=== PATIENT | male | born 1945 | race African-American/Black ===

== ENCOUNTER 2016-11-14 09:11 | Inpatient (IN) | payer OTHER, MEDICARE ==
[~2016-11-14] VITALS: Ht 182.9 cm; Wt 98.6 kg
[2016-11-14] VITALS (10 sets, daily range): BP systolic 121–164; BP diastolic 90–106; PULSE 62–82; RESP 16–19; TEMP 96.5–98.2; O2SAT 94–100
[~2016-11-14 09:11] MED LIST: FINA1TAB2 PO; LIPI40TA PO; NORV10TA OR; PROS5TAB2 PO
[2016-11-14] MEDS ORDERED: LISI10TA PO (09:35)
[2016-11-14] MEDS ORDERED: EPINEPHrine HCL (1:1000) 1 MG/ML VIAL IM ONE (10:00)
[2016-11-14] MEDS ORDERED: FAMOTIDINE 20 MG/2 ML VIAL IV PUSH ONE (10:00)
[2016-11-14] MEDS ORDERED: SODIUM CHLORIDE 0.9% FLUSH 5 ML FLUSH IVF PRN (10:00)
[2016-11-14] MEDS ORDERED: diphenhydrAMINE HCL 50 MG/ML VIAL IVP ONE (10:00)
[2016-11-14] MEDS ORDERED: methylPREDNISolone SOD SUCC 125 MG/2 ML VIAL IVP ONE (10:00)
[2016-11-14] MEDS ORDERED: AMLO10TA2 PO (10:15)
[2016-11-14] MEDS ORDERED: FINA5TAB2 PO (10:15)
[2016-11-14] MEDS ORDERED: ATOR40TA16 PO (10:15)
[2016-11-14] MEDS ORDERED: TIMO0.5S5 EACH EYE (10:15)
[2016-11-14 10:22] LABS: AUTOMATED NEUTROPHIL # 1.9 TH/MM3 (1.8-7.7); BASOPHIL % 0.5 % (0.0-2.0); EOSINOPHIL # 0.3 TH/MM3 (0-0.4); EOSINOPHIL % 7.7 % (0.0-4.0); HEMATOCRIT 38.7 % (39.0-51.0); HEMO FLAGS DIFF FINAL; LYMPH % 26.6 % (9.0-44.0); MEAN CELL VOLUME 84.6 FL (80.0-100.0); MEAN CORPUSCULAR HEMOGLOBIN 28.1 PG (27.0-34.0); MEAN CORPUSCULAR HGB CONC 33.2 % (32.0-36.0); MONO % 14.3 % (0.0-8.0); NEUT % 50.9 % (16.0-70.0); PLATELET COUNT 228 TH/MM3 (150-450); RED BLOOD COUNT 4.58 MIL/MM3 (4.50-5.90); RED CELL DISTRIBUTION WIDTH 15.2 % (11.6-17.2); WHITE BLOOD COUNT 3.7 TH/MM3 (4.0-11.0)
--- NOTE | 2016-11-14 10:30 | PD ---
HPI Chief Complaint: Allergic/Adverse Reaction Time Seen by Provider: 09:46 Travel History International Travel<30 days: No Contact w/Intl Traveler<30days: No Traveled to known affect area: No History of Present Illness HPI 71-year-old male presents with swelling to his left jaw and tongue. He states this started at about 6 or so this morning shortly after he woke up. He denies any associated symptoms with this. Quality is swollen. Severity is worsening. He states he's been on lisinopril for multiple years for his blood pressure. He denies specific modifying factors but states now it's getting hard to talk. Duration is couple hours. PFSH Past Medical History Blood Disorders: No Cancer: No Cardiovascular Problems: Yes (HTN) Diabetes: Yes Patient Takes Glucophage: No Endocrine: No Genitourinary: Yes (URINARY STENTS AMD UROSTOMY TUBE THAT WILL BE TAKEN OUT ON THE ) Hepatitis: No Hiatal Hernia: No Hypertension: Yes Immune Disorder: No Musculoskeletal: No Neurologic: No Psychiatric: No Reproductive: No Respiratory: No Thyroid Disease: No Tetanus Vaccination: > 5 Years Influenza Vaccination: Yes Past Surgical History Abdominal Surgery: No AICD: No Cardiac Surgery: No Cholecystectomy: Yes Ear Surgery: No Endocrine Surgery: No Eye Surgery: No Genitourinary Surgery: Yes (URINARY STENTS, NEPHROLITHIASIS) Oral Surgery: No Pacemaker: No Thoracic Surgery: No Other Surgery: Yes Social History Alcohol Use: Yes (ONE BEER DAILY PER PT) Tobacco Use: No (stopped 2007) Substance Use: No Allergies-Medications (Allergen,Severity, Reaction): Coded Allergies: Lisinopril (Verified Allergy, Severe, FACIAL SWELLING, 11/14/16) Reported Meds & Prescriptions Reported Meds & Active Scripts Active Reported Timoptic Opth Drops (Timolol Opth Drops) 0.5 % Soln 1 Drop EACH EYE BID Finasteride 5 Mg Tab 5 Mg PO DAILY Do not crush. Atorvastatin (Atorvastatin Calcium) 40 Mg Tab 40 Mg PO HS Amlodipine (Amlodipine Besylate) 10 Mg Tab 10 Mg PO DAILY Lisinopril-Hctz 10-12.5 Mg Tab 1 Tab PO DAILY Review of Systems Except as stated in HPI: all other systems reviewed are Neg Physical Exam Narrative GENERAL: Well-nourished, well-developed patient. Patient is able to talk but will intermittently have difficulty talking secondary to swelling from his tongue SKIN: Warm and dry. HEAD: Normocephalic and atraumatic. EYES: No injection or drainage. ENT: No nasal drainage noted. Moderate amount of swelling noted to left lower face and tongue, no uvula swelling NECK: Supple, trachea midline. CARDIOVASCULAR: Regular rate and rhythm RESPIRATORY: Breath sounds equal bilaterally. No accessory muscle use. GASTROINTESTINAL: Abdomen soft, non-tender, nondistended. EXTREMITIES: No edema. NEUROLOGICAL: Awake and alert. Motor and sensory grossly within normal limits. Data Data Last Documented VS Vital Signs Date Time Temp Pulse Resp B/P Pulse Ox O2 Delivery O2 Flow Rate FiO2 11/14/16 11:00 62 16 148/90 100 Nasal Cannula 2 11/14/16 09:13 98.2 Orders Basic Metabolic Panel (Bmp) (11/14/16 09:47) Complete Blood Count With Diff (11/14/16 09:47) Ecg Monitoring (11/14/16 09:47) Iv Access Insert/Monitor (11/14/16 09:47) Oximetry (11/14/16 09:47) Diphenhydramine Inj (Benadryl Inj) (11/14/16 10:00) Methylprednisolone So Succ Inj (Solumedr (11/14/16 10:00) Famotidine Inj (Pepcid Inj) (11/14/16 10:00) Sodium Chloride 0.9% Flush (Ns Flush) (11/14/16 10:00) Epinephrine (1:1000) Inj (Adrenalin (1:1 (11/14/16 10:00) Admit Order (Ed Use Only) (11/14/16 11:56) Labs Laboratory Tests Test 11/14/16 10:00 White Blood Count 3.7 TH/MM3 Red Blood Count 4.58 MIL/MM3 Hemoglobin 12.8 GM/DL Hematocrit 38.7 % Mean Corpuscular Volume 84.6 FL Mean Corpuscular Hemoglobin 28.1 PG Mean Corpuscular Hemoglobin 33.2 % Concent Red Cell Distribution Width 15.2 % Platelet Count 228 TH/MM3 Mean Platelet Volume 8.5 FL Neutrophils (%) (Auto) 50.9 % Lymphocytes (%) (Auto) 26.6 % Monocytes (%) (Auto) 14.3 % Eosinophils (%) (Auto) 7.7 % Basophils (%) (Auto) 0.5 % Neutrophils # (Auto) 1.9 TH/MM3 Lymphocytes # (Auto) 1.0 TH/MM3 Monocytes # (Auto) 0.5 TH/MM3 Eosinophils # (Auto) 0.3 TH/MM3 Basophils # (Auto) 0.0 TH/MM3 CBC Comment DIFF FINAL Differential Comment Sodium Level 137 MEQ/L Potassium Level 4.0 MEQ/L Chloride Level 100 MEQ/L Carbon Dioxide Level 29.2 MEQ/L Anion Gap 8 MEQ/L Blood Urea Nitrogen 20 MG/DL Creatinine 1.68 MG/DL Estimat Glomerular Filtration 49 ML/MIN Rate Random Glucose 100 MG/DL Calcium Level 9.2 MG/DL MDM Medical Decision Making Medical Screen Exam Complete: Yes Emergency Medical Condition: Yes Medical Record Reviewed: Yes (past history confirmed) Interpretation(s) CBC & BMP Diagram 11/14/16 10:00 Differential Diagnosis Angioedema, medication reaction, allergic reaction Narrative Course Will check blood work and dose with Solu-Medrol, Benadryl, Pepcid, epinephrine and reevaluate Approximately 40 minutes after patient had been here he has not gotten better but he has not gotten worse Will continue to closely monitor, patient is on nasal cannula oxygen but he did not desat patient agrees to observation Physician Communication Physician Communication dr goodrich agrees to admit, states can go to [facility] Diagnosis Primary Impression: Angioedema Qualified Code: T78.3XXA - Angioedema, initial encounter Admitting Information Admitting Physician Requests: Observation Clary Canchola MD Nov 14, 2016 10:29
[2016-11-14 10:45] LABS: BICARBONATE 29.2 MEQ/L (21.0-32.0)
[2016-11-14] MEDS ORDERED: NALOXONE HCL 0.4 MG/ML AMP IV PRN (12:00)
[2016-11-14] MEDS ORDERED: TEMAZEPAM 15 MG CAP PO PRN (12:00)
[2016-11-14] MEDS ORDERED: RESP: ALBUTEROL 2.5 MG/IPRATROPIUM 0.5 MG NEB (PRN) NEB (12:00)
[2016-11-14] MEDS ORDERED: ONDANSETRON HCL 4 MG/2 ML VIAL IVP PRN (12:00)
[2016-11-14] MEDS ORDERED: SODIUM CHLORIDE 0.9% FLUSH 5 ML FLUSH FLUSH PRN (12:00)
[2016-11-14] MEDS ORDERED: ACETAMINOPHEN 325 MG TAB PO PRN (12:00)
[2016-11-14] MEDS ORDERED: ACETAMINOPHEN 1000 MG/100 ML VIAL IV SCH (12:00)
--- NOTE | 2016-11-14 12:10 | HHI.HP ---
[facility] Primary [facility] Physician Anne-Marie Pena MD Admission Diagnosis angioedema Diagnoses: (1) Angioedema (2) Hypertension Chief Complaint: Left Facial and tongue swelling Travel History International Travel<30 Days: No Contact w/Intl Traveler <30 Da: No Traveled to Known Affected Are: No History of Present Illness 71-year-old male with a history of long-standing hypertension on lisinopril/hydrochlorothiazide over the past several years presented to the ED for evaluation of an acute onset of left facial and tongue swelling the patient awoke from sleep at 5 AM this morning. Although patient has not taken any of his medication this morning, he denies any odynophagia. Patient is able to swallow his saliva. He denies any prior episodes. Patient denies any trismus. Patient has no complaints the night before prior to going to bed. He is currently afebrile and has no GI bleed. He has no chest pain or shortness of breath. 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 Atorvastatin (Atorvastatin Calcium) 40 Mg Tab 40 Mg PO HS Amlodipine (Amlodipine Besylate) 10 Mg Tab 10 Mg PO DAILY Lisinopril-Hctz 10-12.5 Mg Tab 1 Tab PO DAILY Allergies: Coded Allergies: Lisinopril (Verified Allergy, Severe, FACIAL SWELLING, 11/14/16) Family History Mother living- healthy Father 2/2 MVA Siblings- healthy No children Social History Retired. Used to do "concrete/cement work". Single. Tobacco: 1ppd but only takes "a couple of drags" from each cigarette. Smoking since 19yo. EtOH: 1 beer per day. Illicit drugs: denies Physical Exam Vital Signs Vital Signs Date Time Temp Pulse Resp B/P Pulse Ox O2 Delivery O2 Flow Rate FiO2 11/14/16 11:00 62 16 148/90 100 Nasal Cannula 2 11/14/16 10:50 94 Room Air 11/14/16 10:00 64 18 132/92 99 Nasal Cannula 2 11/14/16 09:47 67 19 149/94 96 Room Air 11/14/16 09:42 Room Air 11/14/16 09:13 98.2 75 17 164/106 94 Physical Exam GENERAL: This is a well-nourished, well-developed patient, in no apparent distress. SKIN: No rashes, ecchymoses or lesions. Cool and dry. HEAD: Atraumatic. Normocephalic. No temporal or scalp tenderness. EYES: Pupils equal round and reactive. Extraocular motions intact. No scleral icterus. No injection or drainage. ENT: Nose without bleeding, purulent drainage or septal hematoma. Left facial and tongue swelling. tonsillar hypertrophy or exudate. Uvula midline. Airway patent. NECK: Trachea midline. No JVD or lymphadenopathy. Supple, nontender, no meningeal signs. CARDIOVASCULAR: Regular rate and rhythm without murmurs, gallops, or rubs. RESPIRATORY: Clear to auscultation. Breath sounds equal bilaterally. No wheezes , rales, or rhonchi. GASTROINTESTINAL: Abdomen soft, non-tender, nondistended. No hepato-splenomegaly , or palpable masses. No guarding. MUSCULOSKELETAL: Extremities without clubbing, cyanosis, or edema. No joint tenderness, effusion, or edema noted. No calf tenderness. Negative Homans sign bilaterally. NEUROLOGICAL: Awake and alert. Cranial nerves II through XII intact. Motor and sensory grossly within normal limits. Five out of 5 muscle strength in all muscle groups. Normal speech. Laboratory Laboratory Tests Test 11/14/16 10:00 White Blood Count 3.7 Red Blood Count 4.58 Hemoglobin 12.8 Hematocrit 38.7 Mean Corpuscular Volume 84.6 Mean Corpuscular Hemoglobin 28.1 Mean Corpuscular Hemoglobin 33.2 Concent Red Cell Distribution Width 15.2 Platelet Count 228 Mean Platelet Volume 8.5 Neutrophils (%) (Auto) 50.9 Lymphocytes (%) (Auto) 26.6 Monocytes (%) (Auto) 14.3 Eosinophils (%) (Auto) 7.7 Basophils (%) (Auto) 0.5 Neutrophils # (Auto) 1.9 Lymphocytes # (Auto) 1.0 Monocytes # (Auto) 0.5 Eosinophils # (Auto) 0.3 Basophils # (Auto) 0.0 CBC Comment DIFF FINAL Differential Comment Sodium Level 137 Potassium Level 4.0 Chloride Level 100 Carbon Dioxide Level 29.2 Anion Gap 8 Blood Urea Nitrogen 20 Creatinine 1.68 Estimat Glomerular Filtration 49 Rate Random Glucose 100 Calcium Level 9.2 Result Diagram: 11/14/16 1000 11/14/16 1000 Assessment and Plan Problem List: (1) Angioedema ICD Code: T78.3XXA Status: Acute (2) Hypertension ICD Code: I10 Status: Chronic (3) Acute on chronic kidney failure ICD Code: N17.9 Status: Acute (4) BPH (benign prostatic hypertrophy) with urinary obstruction ICD Code: N40.1 Status: Acute (5) Hyperlipidemia ICD Code: E78.5 Status: Acute Assessment and Plan 71-year-old male with 1-Angioedema: Second to lisinopril which has been discontinued as of today. Status post treatment with Solu-Medrol, Benadryl, Pepcid, epinephrine 1 in ED. Will continue with Benadryl, Pepcid, steroid as well as gentle IV fluid hydration. He is currently protecting his airways 2-Hypertension: Discontinue lisinopril, resume Norvasc 3-Hyperlipidemia: Resume Lipitor 4-BPH: Resume Proscar 5-Acute on chronic kidney disease stage II: Missions BUN/name 20/1.68 however on 02/06/16 BUN/creatinine 9/1.58. Start IV fluid hydration NS 70ml/Hr, monitor BUN and creatinine. Avoid all nephrotoxic drugs 6-DVT prophylaxis: Bilateral SCDs Code Status Full code Discussed Condition With Patient, [facility] physician Physician Certification 2 Midnight Certification Type: Admission for Inpatient Services Order for Inpatient Services The services are ordered in accordance with Medicare regulations or non- Medicare payer requirements, as applicable. In the case of services not specified as inpatient-only, they are appropriately provided as inpatient services in accordance with the 2-midnight benchmark. Estimated LOS (days): 2 days is the estimated time the patient will need to remain in the hospital, assuming treatment plan goals are met and no additional complications. Post-Hospital Plan: Not yet determined Problem Qualifiers (1) Angioedema: Qualified Code: T78.3XXA - Angioedema, initial encounter Dimitry Gaytan MD Nov 14, 2016 12:10
[2016-11-14] MEDS: SODIUM CHLOR 0.9% 1000 ML INJ 1,000 ML IV SCH (13:20)
[2016-11-14] MEDS ORDERED: diphenhydrAMINE HCL 50 MG/ML VIAL IV PUSH ONE (15:45)
[2016-11-14] MEDS ORDERED: diphenhydrAMINE HCL 50 MG/ML VIAL IV PUSH PRN (16:00)
[2016-11-14] MEDS: FAMOTIDINE 20 MG/2 ML VIAL IV PUSH SCH (16:34)
[2016-11-14] MEDS: TIMOLOL MALEATE 0.5% OPHT SOLN 5 ML BTL EACH EYE SCH (20:55)
[2016-11-14] MEDS: predniSONE 50 MG TAB PO SCH (20:56)
[2016-11-14] MEDS: SODIUM CHLORIDE 0.9% FLUSH 5 ML FLUSH FLUSH SCH (20:56)
[2016-11-14] MEDS: diphenhydrAMINE HCL 50 MG/ML VIAL IV PUSH PRN (20:56)
[2016-11-14] MEDS: ATORVASTATIN 40 MG TAB PO SCH (20:56)
[2016-11-15] VITALS: BP 122/89; PULSE 72; RESP 18; TEMP 97.2; O2SAT 95
[2016-11-15] MEDS: diphenhydrAMINE HCL 50 MG/ML VIAL IV PUSH PRN ×2 (01:06→06:36)
[2016-11-15] MEDS: SODIUM CHLOR 0.9% 1000 ML INJ 1,000 ML IV SCH ×2 (02:30→17:40)
[2016-11-15 04:00] VITALS: BP 124/89; PULSE 74; RESP 17; TEMP 97.4; O2SAT 96
[2016-11-15] MEDS: FAMOTIDINE 20 MG/2 ML VIAL IV PUSH SCH ×2 (04:16→15:08)
[2016-11-15 07:18] LABS: AUTOMATED NEUTROPHIL # 6.1 TH/MM3 (1.8-7.7); BASOPHIL % 0.1 % (0.0-2.0); HEMATOCRIT 38.8 % (39.0-51.0); HEMO FLAGS DIFF FINAL; LYMPH % 9.5 % (9.0-44.0); LYMPHOCYTE # 0.7 TH/MM3 (1.0-4.8); MEAN CELL VOLUME 85.2 FL (80.0-100.0); MEAN CORPUSCULAR HEMOGLOBIN 27.7 PG (27.0-34.0); MEAN CORPUSCULAR HGB CONC 32.6 % (32.0-36.0); MONO % 4.7 % (0.0-8.0); NEUT % 85.7 % (16.0-70.0); PLATELET COUNT 232 TH/MM3 (150-450); RED BLOOD COUNT 4.55 MIL/MM3 (4.50-5.90); RED CELL DISTRIBUTION WIDTH 15.3 % (11.6-17.2); WHITE BLOOD COUNT 7.1 TH/MM3 (4.0-11.0)
[2016-11-15 07:30] VITALS: BP 152/106; PULSE 76; RESP 20; TEMP 96.5; O2SAT 94
[2016-11-15 08:11] LABS: ALT (GPT) 20 U/L (12-78); ANION GAP 8 MEQ/L (5-15); AST (GOT) 14 U/L (15-37); BICARBONATE 27.5 MEQ/L (21.0-32.0); BLOOD UREA NITROGEN 19 MG/DL (7-18); CHLORIDE 104 MEQ/L (98-107); GLOMERULAR FILTRATION RATE 56 ML/MIN (>89); POTASSIUM 4.2 MEQ/L (3.5-5.1); SODIUM (NA) 139 MEQ/L (136-145)
[2016-11-15 08:13] LABS: ALKALINE PHOSPHATASE 59 U/L (45-117); TOTAL BILIRUBIN ADULT 0.3 MG/DL (0.2-1.0)
[2016-11-15] MEDS: SODIUM CHLORIDE 0.9% FLUSH 5 ML FLUSH FLUSH SCH ×2 (09:00→20:09)
[2016-11-15] MEDS: TIMOLOL MALEATE 0.5% OPHT SOLN 5 ML BTL EACH EYE SCH ×2 (09:00→20:04)
[2016-11-15] MEDS: FINASTERIDE 5 MG TAB PO SCH (09:04)
[2016-11-15] MEDS: predniSONE 50 MG TAB PO SCH ×2 (09:04→20:06)
--- NOTE | 2016-11-15 09:37 | HHI.PR ---
Subjective Remarks Follow-up angioedema 11/15/16-patient seen and examined, reports some improvement of left facial and tongue swelling. No acute event overnight. Currently afebrile. Improving renal indices Objective Vitals Vital Signs Date Time Temp Pulse Resp B/P Pulse Ox O2 Delivery O2 Flow Rate FiO2 11/15/16 04:00 97.4 74 17 124/89 96 11/15/16 00:00 97.2 72 18 122/89 95 11/14/16 20:00 96.9 82 18 121/96 96 11/14/16 16:00 96.8 66 16 139/98 96 11/14/16 14:00 96.5 74 18 134/95 97 11/14/16 13:42 67 18 149/96 97 11/14/16 12:45 66 18 142/91 97 Room Air 11/14/16 11:00 62 16 148/90 100 Nasal Cannula 2 11/14/16 10:50 94 Room Air 11/14/16 10:00 64 18 132/92 99 Nasal Cannula 2 11/14/16 09:47 67 19 149/94 96 Room Air 11/14/16 09:42 Room Air I/O 11/14/16 11/14/16 11/14/16 11/15/16 11/15/16 11/15/16 07:00 15:00 23:00 07:00 15:00 23:00 Intake Total 1220 ml Output Total 100 ml 2050 ml Balance -100 ml -830 ml Intake Oral 720 ml IV Total 500 ml Output Urine Total 100 ml 2050 ml # Bowel Movements 0 Result Diagram: 11/15/16 0552 11/15/16 0552 Objective Remarks GENERAL: NAD improving Left facial swelling SKIN: Warm and dry. HEAD: Normocephalic. EYES: No scleral icterus. No injection or drainage. NECK: Supple, trachea midline. No JVD or lymphadenopathy. CARDIOVASCULAR: Regular rate and rhythm without murmurs, gallops, or rubs. RESPIRATORY: Breath sounds equal bilaterally. No accessory muscle use. GASTROINTESTINAL: Abdomen soft, non-tender, nondistended. MUSCULOSKELETAL: No cyanosis, or edema. BACK: Nontender without obvious deformity. No CVA tenderness. Procedures None A/P Problem List: (1) Angioedema ICD Code: T78.3XXA Status: Acute (2) Hypertension ICD Code: I10 Status: Chronic (3) Acute on chronic kidney failure ICD Code: N17.9 Status: Acute (4) BPH (benign prostatic hypertrophy) with urinary obstruction ICD Code: N40.1 Status: Chronic (5) Hyperlipidemia ICD Code: E78.5 Status: Chronic Assessment and Plan 71-year-old male with 1-Angioedema: Second to lisinopril which has been discontinued as of 11/14/16. Status post treatment with Solu-Medrol, Benadryl, Pepcid, epinephrine 1 in ED. improving and currently on Benadryl, Pepcid, prednisone 50 mg by mouth twice a day to be completed today 11/15/16 as well as gentle IV fluid hydration. No airway compromise 2-Hypertension: Discontinue lisinopril, normotensive on Norvasc 3-Hyperlipidemia: Continue Lipitor 4-BPH: on Proscar 5-Acute on chronic kidney disease stage II: Renal indices is improving (19/1.50) . Admission BUN/name 20/1.68 however on 02/06/16 BUN/creatinine 9/1.58. Continue IV fluid hydration NS 70ml/Hr, monitor BUN and creatinine. Avoid all nephrotoxic drugs 6-DVT prophylaxis: Bilateral SCDs Discharge Planning Likely discharge within the next 24 hours Problem Qualifiers (1) Angioedema: Qualified Code: T78.3XXA - Angioedema, initial encounter Dimitry Gaytan MD Nov 15, 2016 09:37
[2016-11-15 11:00] VITALS: BP 143/107; PULSE 76; RESP 20; TEMP 96.2
[2016-11-15 15:50] VITALS: BP 142/88; PULSE 91; RESP 20; TEMP 95.4; O2SAT 92
[2016-11-15 20:00] VITALS: BP 148/91; PULSE 70; RESP 18; TEMP 96.9; O2SAT 96
[2016-11-15] MEDS: ATORVASTATIN 40 MG TAB PO SCH (20:06)
[2016-11-16] VITALS: BP 163/91; PULSE 68; RESP 18; TEMP 96.5; O2SAT 97
[2016-11-16] MEDS: SODIUM CHLOR 0.9% 1000 ML INJ 1,000 ML IV SCH (01:34)
[2016-11-16 04:45] VITALS: BP 139/76; PULSE 64; RESP 16; TEMP 97.3; O2SAT 96
[2016-11-16 07:29] LABS: BICARBONATE 27.4 MEQ/L (21.0-32.0); POTASSIUM 4.2 MEQ/L (3.5-5.1)
[2016-11-16 07:47] VITALS: BP 144/90; PULSE 75; RESP 22; TEMP 97; O2SAT 95
[2016-11-16] MEDS ORDERED: FAMO20TA2 PO (08:41)
[2016-11-16] MEDS ORDERED: BENA25TA3 PO (08:41)
[2016-11-16] MEDS ORDERED: HYDR12.56 PO (08:41)
[2016-11-16] MEDS ORDERED: POTA10CA PO (08:42)
[2016-11-16] MEDS ORDERED: FAMOTIDINE 20 MG TAB PO SCH (09:00)
[2016-11-16] MEDS: SODIUM CHLORIDE 0.9% FLUSH 5 ML FLUSH FLUSH SCH (09:06)
[2016-11-16] MEDS: TIMOLOL MALEATE 0.5% OPHT SOLN 5 ML BTL EACH EYE SCH (09:06)
[2016-11-16] MEDS: FINASTERIDE 5 MG TAB PO SCH (09:06)
--- NOTE | 2016-11-16 09:30 | HHI.PR ---
Subjective Remarks Follow-up angioedema 11/15/16-patient seen and examined, reports some improvement of left facial and tongue swelling. No acute event overnight. Currently afebrile. Improving renal indices 11/16/16-patient seen and examined. He has significant improvement of left facial and tongue swelling. Tolerating by mouth without any complication. No acute event overnight. Objective Vitals Vital Signs Date Time Temp Pulse Resp B/P Pulse Ox O2 Delivery O2 Flow Rate FiO2 11/16/16 07:47 97.0 75 22 144/90 95 11/16/16 04:45 97.3 64 16 139/76 96 11/16/16 00:00 96.5 68 18 163/91 97 11/15/16 20:00 96.9 70 18 148/91 96 11/15/16 15:50 95.4 91 20 142/88 92 11/15/16 11:00 96.2 76 20 143/107 I/O 11/15/16 11/15/16 11/15/16 11/16/16 11/16/16 11/16/16 07:00 15:00 23:00 07:00 15:00 23:00 Intake Total 1381 ml 480 ml 2418 ml 360 ml Output Total 325 ml 550 ml 600 ml Balance 1056 ml 480 ml 1868 ml -240 ml Intake Oral 240 ml 480 ml 480 ml 360 ml IV Total 1141 ml 1938 ml Output Urine Total 325 ml 550 ml 600 ml # Voids 2 # Bowel Movements 1 Result Diagram: 11/15/16 0552 11/16/16 0600 Objective Remarks GENERAL: NAD improved Left facial swelling SKIN: Warm and dry. HEAD: Normocephalic. EYES: No scleral icterus. No injection or drainage. NECK: Supple, trachea midline. No JVD or lymphadenopathy. CARDIOVASCULAR: Regular rate and rhythm without murmurs, gallops, or rubs. RESPIRATORY: Breath sounds equal bilaterally. No accessory muscle use. GASTROINTESTINAL: Abdomen soft, non-tender, nondistended. MUSCULOSKELETAL: No cyanosis, or edema. BACK: Nontender without obvious deformity. No CVA tenderness. Procedures None A/P Problem List: (1) Angioedema ICD Code: T78.3XXA Status: Acute (2) Hypertension ICD Code: I10 Status: Chronic (3) Acute on chronic kidney failure ICD Code: N17.9 Status: Acute (4) BPH (benign prostatic hypertrophy) with urinary obstruction ICD Code: N40.1 Status: Chronic (5) Hyperlipidemia ICD Code: E78.5 Status: Chronic Assessment and Plan 71-year-old male with 1-Angioedema: Second to lisinopril which has been discontinued as of 11/14/16. Status post treatment with Solu-Medrol, Benadryl, Pepcid, epinephrine 1 in ED. improved and currently on Benadryl, Pepcid, prednisone 50 mg by mouth twice a day to be completed 11/15/16 as well as gentle IV fluid hydration. No airway compromise 2-Hypertension: Discontinue lisinopril, normotensive on Norvasc 3-Hyperlipidemia: Continue Lipitor 4-BPH: on Proscar 5-Acute on chronic kidney disease stage II: Renal indices is improving (19/1.42) . Admission BUN/name 20/1.68 however on 02/06/16 BUN/creatinine 9/1.58. Improved IV fluid hydration NS 70ml/Hr, monitor BUN and creatinine. Avoid all nephrotoxic drugs 6-DVT prophylaxis: Bilateral SCDs Problem Qualifiers (1) Angioedema: Qualified Code: T78.3XXA - Angioedema, initial encounter Dimitry Gaytan MD Nov 16, 2016 09:30
--- NOTE | 2016-11-16 09:34 | HHI.DS ---
Discharge Summary Admission Date Nov 14, 2016 at 11:58 Discharge Date: Nov 16, 2016 Admitting Diagnosis angioedema (1) Angioedema ICD Code: T78.3XXA Diagnosis: Principal (2) Hypertension ICD Code: I10 (3) Acute on chronic kidney failure ICD Code: N17.9 (4) BPH (benign prostatic hypertrophy) with urinary obstruction ICD Code: N40.1 (5) Hyperlipidemia ICD Code: E78.5 Procedures None Brief History - From Admission 71-year-old male with a history of long-standing hypertension on lisinopril/hydrochlorothiazide over the past several years presented to the ED for evaluation of an acute onset of left facial and tongue swelling the patient awoke from sleep at 5 AM this morning. Although patient has not taken any of his medication this morning, he denies any odynophagia. Patient is able to swallow his saliva. He denies any prior episodes. Patient denies any trismus. Patient has no complaints the night before prior to going to bed. He is currently afebrile and has no GI bleed. He has no chest pain or shortness of breath. CBC/BMP: 11/15/16 0552 11/16/16 0600 Significant Findings Laboratory Tests Test 11/14/16 11/15/16 11/16/16 10:00 05:52 06:00 White Blood Count 3.7 TH/MM3 (4.0-11.0) Hemoglobin 12.8 GM/DL 12.6 GM/DL (13.0-17.0) (13.0-17.0) Hematocrit 38.7 % 38.8 % (39.0-51.0) (39.0-51.0) Monocytes (%) (Auto) 14.3 % (0.0-8.0) Eosinophils (%) (Auto) 7.7 % (0.0-4.0) Blood Urea Nitrogen 20 MG/DL (7-18) 19 MG/DL (7-18) 19 MG/DL (7-18) Creatinine 1.68 MG/DL 1.50 MG/DL 1.42 MG/DL (0.60-1.30) (0.60-1.30) (0.60-1.30) Estimat Glomerular Filtration 49 ML/MIN (>89) 56 ML/MIN (>89) 60 ML/MIN (>89) Rate Neutrophils (%) (Auto) 85.7 % (16.0-70.0) Lymphocytes # (Auto) 0.7 TH/MM3 (1.0-4.8) Random Glucose 133 MG/DL 118 MG/DL (74-106) (74-106) Aspartate Amino Transf 14 U/L (15-37) (AST/SGOT) Albumin 3.3 GM/DL (3.4-5.0) PE at Discharge GENERAL: NAD improved Left facial swelling SKIN: Warm and dry. HEAD: Normocephalic. EYES: No scleral icterus. No injection or drainage. NECK: Supple, trachea midline. No JVD or lymphadenopathy. CARDIOVASCULAR: Regular rate and rhythm without murmurs, gallops, or rubs. RESPIRATORY: Breath sounds equal bilaterally. No accessory muscle use. GASTROINTESTINAL: Abdomen soft, non-tender, nondistended. MUSCULOSKELETAL: No cyanosis, or edema. BACK: Nontender without obvious deformity. No CVA tenderness. Hospital Course Patient was admitted secondary to left facial and tongue swelling diagnosed with angioedema secondary to lisinopril which was discontinued and placed as a allergic drug reaction. He responded to treatment with Solu-Medrol, Benadryl, Pepcid, epinephrine 1 in ED, however the swollen remained. He was continued on Benadryl, Pepcid, prednisone 50 mg by mouth twice a day for only one day which he completed on 11/15/16 as well as gentle IV fluid hydration. Patient was able to protect his airways and diet was advanced accordingly. He was started on IV fluids secondary to acute on chronic kidney disease with improvement of renal indices prior to discharge. Oral hypertensive medications were resumed except lisinopril and BP was monitored throughout hospitalization. He was continued on his medication for cholesterol as well as BPH. DVT and GI prophylaxis were provided. Prior to discharge, patient vitals remained stable and his condition improved. Pt Condition on Discharge: Stable Discharge Disposition: Discharge Home Discharge Time: <= 30 minutes Discharge Instructions DIET: Follow Instructions for: Heart Healthy Diet Activities you can perform: Regular-No Restrictions Follow up Referrals: PCP Follow-up - 1 Week New Medications: Diphenhydramine (Benadryl Allergy) 25 Mg Tab 25 MG PO Q6H PRN ALLERGIES #24 Ref 0 TAB Hydrochlorothiazide (Hydrochlorothiazide) 12.5 Mg Tab 12.5 MG PO DAILY Blood Pressure Management #30 Ref 0 TAB Potassium Chloride ER (Potassium Chloride ER) 10 Meq Cap 10 MEQ PO DAILY Electrolyte Replacement #30 Ref 0 CAP Famotidine (Famotidine) 20 Mg Tab 20 MG PO Q12H Allergy Management #20 TAB Continued Medications: Amlodipine (Amlodipine) 10 Mg Tab 10 MG PO DAILY Blood Pressure Management #30 Ref 0 TAB Atorvastatin (Atorvastatin) 40 Mg Tab 40 MG PO HS Cholesterol Management #30 Ref 0 TAB Finasteride (Finasteride) 5 Mg Tab 5 MG PO DAILY Do not crush. Manage Prostate Problems #30 Ref 0 TAB Timolol Opth Drops (Timoptic Opth Drops) 0.5 % Soln 1 DROP EACH EYE BID Glaucoma #1 Ref 0 BOTTLE Discontinued Medications: Lisinopril-Hctz (Lisinopril-Hctz) 10-12.5 Mg Tab 1 TAB PO DAILY Blood Pressure Management #30 Ref 0 TAB Dimitry Gaytan MD Nov 16, 2016 09:34
== END 2016-11-16 11:37 | disposition home or self-care (01) | DRG 916 ==
LOC: NEPC 09:11 → OBSVTOIN 11:58 → NEDA 11:58 → HOCA 13:53
PROVIDERS: ADMIT Hospitalist; ATTEND Hospitalist
DX: T78.3XXA Angioneurotic edema, initial encounter (principal); N17.9 Acute kidney failure, unspecified; N13.8 Other obstructive and reflux uropathy; I12.9 Hypertensive chronic kidney disease with stage 1 through stage 4 chronic kidney disease, or unspecified chronic kidney disease; T46.4X5A Adverse effect of angiotensin-converting-enzyme inhibitors, initial encounter; N18.2 Chronic kidney disease, stage 2 (mild); N40.1 Benign prostatic hyperplasia with lower urinary tract symptoms; E78.5 Hyperlipidemia, unspecified; Z87.891 Personal history of nicotine dependence
CPT/HCPCS: 80048; 80053; 85025; 96372; 96374; 96375; J0171; J1200; J2930; J7030; J7512

== ENCOUNTER 2016-11-17 19:27 | Emergency (ER) | payer OTHER ==
[~2016-11-17] VITALS: Ht 182.9 cm; Wt 99.0 kg
[~2016-11-17 19:27] MED LIST changes: +AMLO10TA2 PO; +ATOR40TA16 PO; +BENA25TA3 PO; +FAMO20TA2 PO; -FINA1TAB2 PO; +FINA5TAB2 PO; +HYDR12.56 PO; -LIPI40TA PO; -NORV10TA OR; +POTA10CA PO; -PROS5TAB2 PO; +TIMO0.5S5 EACH EYE
[2016-11-17 19:29] VITALS: BP 166/111; PULSE 63; RESP 15; TEMP 98.2; O2SAT 96
--- NOTE | 2016-11-17 19:53 | PD ---
HPI Chief Complaint: Diabetic Time Seen by Provider: 19:53 Travel History International Travel<30 days: No Contact w/Intl Traveler<30days: No Traveled to known affect area: No History of Present Illness HPI 71-year-old male with history of hypertension, diabetes, presents to emergency department for evaluation of elevated blood pressure. Patient was discharged yesterday following a short stay after having angioedema likely secondary to lisinopril. His lisinopril was stopped. He is now on amlodipine and HCTZ. He was concerned because his blood pressure has been running higher than usual. He has not had any symptoms. No headache. No dizziness. No focal deficit or weakness. No chest pain or tightness. Patient felt he needed to get his blood pressure evaluated. PFSH Past Medical History Blood Disorders: No Heart Rhythm Problems: No Cancer: No Cardiovascular Problems: Yes (HTN) High Cholesterol: No Chest Pain: No Congestive Heart Failure: No Diabetes: Yes Endocrine: No Genitourinary: Yes (URINARY STENTS AMD UROSTOMY TUBE THAT WILL BE TAKEN OUT ON THE ) Hepatitis: No Hiatal Hernia: No Hypertension: Yes Immune Disorder: No Musculoskeletal: No Neurologic: No Psychiatric: No Reproductive: No Respiratory: No Thyroid Disease: No Past Surgical History Abdominal Surgery: No AICD: No Cardiac Surgery: No Cholecystectomy: Yes Ear Surgery: No Endocrine Surgery: No Eye Surgery: No Genitourinary Surgery: Yes (URINARY STENTS, NEPHROLITHIASIS) Oral Surgery: No Pacemaker: No Thoracic Surgery: No Other Surgery: Yes Social History Alcohol Use: Yes (ONE BEER DAILY PER PT) Tobacco Use: No (stopped 2007) Substance Use: No Allergies-Medications (Allergen,Severity, Reaction): Coded Allergies: Lisinopril (Verified Allergy, Severe, FACIAL SWELLING, 11/17/16) Reported Meds & Prescriptions Reported Meds & Active Scripts Active Potassium Chloride ER (Potassium Chloride) 10 Meq Cap 10 Meq PO DAILY Hydrochlorothiazide 12.5 Mg Tab 12.5 Mg PO DAILY Famotidine 20 Mg Tab 20 Mg PO Q12H Reported Finasteride 5 Mg Tab 5 Mg PO DAILY Do not crush. Atorvastatin (Atorvastatin Calcium) 40 Mg Tab 40 Mg PO HS Amlodipine (Amlodipine Besylate) 10 Mg Tab 10 Mg PO DAILY Review of Systems Except as stated in HPI: all other systems reviewed are Neg Physical Exam Narrative GENERAL: Well-nourished, well-developed patient, ambulatory and in no acute distress SKIN: Warm and dry. HEAD: Normocephalic. EYES: No scleral icterus. No injection or drainage. NECK: Supple, trachea midline. No JVD or lymphadenopathy. CARDIOVASCULAR: Regular rate and rhythm without murmurs, gallops, or rubs. RESPIRATORY: Breath sounds equal bilaterally. No accessory muscle use. GASTROINTESTINAL: Abdomen soft, non-tender, nondistended. MUSCULOSKELETAL: No cyanosis, or edema. BACK: Nontender without obvious deformity. No CVA tenderness. Data Data Last Documented VS Vital Signs Date Time Temp Pulse Resp B/P Pulse Ox O2 Delivery O2 Flow Rate FiO2 11/17/16 20:02 70 18 162/99 99 Room Air 11/17/16 19:29 98.2 MDM Medical Decision Making Medical Screen Exam Complete: Yes Emergency Medical Condition: Yes Medical Record Reviewed: Yes Differential Diagnosis Hypertension essential versus secondary versus anxiety versus hypertensive urgency Narrative Course 71-year-old male presents to emergency department for evaluation of high blood pressure. Patient appears well and without distress. Exam is reassuring. There are no focal deficits on examination. Blood pressure is elevated but the patient remains asymptomatic. I discussed the patient's attending physician. This is likely elevated blood pressure as the patient has been taking off a lisinopril and is only on his amlodipine which he has traditionally taken in addition to HCTZ. Patient will be discharged home to follow-up with Dr. Pena. He agrees to contact the office tomorrow for an appointment and return immediately with any acute worsening of symptoms. Diagnosis Primary Impression: Hypertension Qualified Code: I10 - Essential hypertension Referrals: Primary Care Physician Patient Instructions: General Instructions, Hypertension (ED) Additional Instructions: Continue medication as already prescribed Contact your primary care provider Dr. Pena tomorrow for follow-up Return immediately with any acute worsening of symptoms Med/Other Pt SpecificInfo: No Change to Meds Disposition: 01 DISCHARGE HOME Condition: Stable Mary Renee Nov 17, 2016 19:53
[2016-11-17 20:02] VITALS: BP 162/99; PULSE 70; RESP 18; O2SAT 99
== END 2016-11-17 21:41 | disposition home or self-care (01) ==
LOC: NETRI 19:27
DX: I10 Essential (primary) hypertension (principal); E11.9 Type 2 diabetes mellitus without complications
CPT/HCPCS: 99283